=== PATIENT | female | born 1940 | race African-American/Black ===

== ENCOUNTER 2023-01-23 15:14 | Observation (INO) | payer BC ==
[2023-01-23 17:18] LABS: EOS % 3.9 % (0-4.5); HEMATOCRIT 34.4 % (32.4-45.2); HEMOGLOBIN 11.5 GM/dL (10.7-15.3); LYMPH % 44.3 % (8-40); MCH 27.2 pg (25.7-33.7); MCHC 33.3 g/dl (32.0-36.0); MEAN CELL VOLUME 81.5 fl (80-96); MEAN PLT VOLUME 7.7 fl (7.5-11.1); NEUT % 43.8 % (42.8-82.8); PLATELET COUNT 216 10^3/uL (134-434); RBC 4.22 M/mm3 (3.60-5.2); RDW 14.8 % (11.6-15.6); WHITE BLOOD COUNT 5.8 K/mm3 (4.0-10.0)
[2023-01-23 17:21] LABS: VENOUS BASE EXCESS 0.6 mmol/L (-2-2); VENOUS O2 SATURATION 60.9 % (70-80); VENOUS PCO2 47.5 mmHg (38-52); VENOUS PH 7.364 (7.310-7.410)
[2023-01-23 17:26] LABS: INR 1.09 (0.83-1.09); PROTHROMBIN TIME (PATIENT) 12.6 SEC (9.7-13.0)
[2023-01-23 17:29] LABS: ACTIVATED PTT 32.4 SECONDS (25.2-36.5)
[2023-01-23 17:41] LABS: CALCIUM 9.4 mg/dL (8.5-10.1)
[2023-01-23 17:42] LABS: ALBUMIN 3.8 g/dl (3.4-5.0); BLOOD UREA NITROGEN 32.6 mg/dL (7-18); MAGNESIUM 2.4 mg/dL (1.8-2.4)
[2023-01-23 17:45] LABS: CREATININE 1.6 mg/dL (0.55-1.3)
[2023-01-23 17:46] LABS: BILIRUBIN,TOTAL 0.5 mg/dL (0.2-1)
[2023-01-23 17:52] LABS: EPI CELLS 9 /uL (0-25.1); HYALINE CASTS 0 /uL (0-3.1); URINE APPEARANCE CLEAR; URINE BACTERIA 303 /uL (0-1359); URINE BILIRUBIN NEGATIVE (NEGATIVE); URINE COLOR YELLOW; URINE GLUCOSE (UA) NEGATIVE (NEGATIVE); URINE KETONE NEGATIVE (NEGATIVE); URINE LEUK ESTERASE TRACE (NEGATIVE); URINE NITRITE NEGATIVE (NEGATIVE); URINE PROTEIN NEGATIVE (NEGATIVE); URINE RBC 9 /uL (0-23.9); URINE UROBILINOGEN 0.2 mg/dL (0.2-1.0); URINE WBC 9 /uL (0-25.8)
[2023-01-23] MEDS ORDERED: MECLIZINE HCL 25 MG TABLET (FP) PO ONE (18:25)
[2023-01-23] MEDS ORDERED: SODIUM CHLORIDE 0.9% 500 ML INFUS.BAG IV ONE ×2 (18:40→19:25)
[2023-01-23] MEDS ORDERED: MECLIZINE HCL 25 MG TABLET (FP) ONE (20:18)
[2023-01-23] MEDS ORDERED: amLODIPine BESYLATE 10 MG TABLET (FP) PO SCH (21:15)
[2023-01-23] MEDS ORDERED: amLODIPine BESYLATE 10 MG TABLET (FP) ONE (21:22)
[2023-01-23] MEDS ORDERED: ROSUVASTATIN CA 20 MG TABLET ONE (21:22)
[2023-01-23] MEDS ORDERED: HEPARIN NA (PORCINE) 5,000 UNITS/ML 1ML VIAL ONE (21:23)
[2023-01-23] MEDS: ROSUVASTATIN CA 20 MG TABLET PO SCH (21:31)
[2023-01-23] MEDS ORDERED: HEPARIN NA (PORCINE) 5,000 UNITS/ML 1ML VIAL SQ SCH (22:00)
[2023-01-23] MEDS ORDERED: ASPIRIN 81 MG CHEWABLE TABLETS PO ONE (22:32)
[2023-01-23 23:01] VITALS: BMI 39.0
[2023-01-24] MEDS ORDERED: MECLIZINE HCL 12.5 MG TABLET PO PRN (01:00)
[2023-01-24] MEDS ORDERED: ASPIRIN 81 MG CHEWABLE TABLETS PO ONE (01:00)
[2023-01-24 07:10] LABS: HEMATOCRIT 32.3 % (32.4-45.2); HEMOGLOBIN 10.8 GM/dL (10.7-15.3); MCH 27.3 pg (25.7-33.7); MCHC 33.5 g/dl (32.0-36.0); MEAN CELL VOLUME 81.3 fl (80-96); MEAN PLT VOLUME 7.3 fl (7.5-11.1); PLATELET COUNT 214 10^3/uL (134-434); RBC 3.97 M/mm3 (3.60-5.2); RDW 14.7 % (11.6-15.6); WHITE BLOOD COUNT 5.6 K/mm3 (4.0-10.0)
[2023-01-24 07:35] LABS: CALCIUM 8.6 mg/dL (8.5-10.1)
[2023-01-24 07:36] LABS: BLOOD UREA NITROGEN 27.5 mg/dL (7-18); MAGNESIUM 2.2 mg/dL (1.8-2.4)
[2023-01-24 07:37] LABS: CHOLESTEROL 117 mg/dL (50-200)
[2023-01-24 07:38] LABS: TRIGLYCERIDES 106 mg/dL (0-150)
[2023-01-24 07:39] LABS: CREATININE 1.3 mg/dL (0.55-1.3); LDL CHOLESTEROL (ONLY SJRH) 58 mg/dL (5-100); PHOSPHOROUS 4.3 mg/dL (2.5-4.9)
[2023-01-24 07:41] LABS: HDL CHOLESTEROL 48 mg/dL (40-60)
[2023-01-24] MEDS: ENOXAPARIN NA (PORCINE) 40 MG/0.4 ML DISP.SYRIN SQ SCH (09:42)
[2023-01-24] MEDS ORDERED: ASPIRIN 81 MG CHEWABLE TABLETS PO SCH (10:00)
[2023-01-24] MEDS ORDERED: FUROSEMIDE 40 MG TABLET (FP) PO PRN (12:42)
[2023-01-24] MEDS: ROSUVASTATIN CA 20 MG TABLET PO SCH (21:26)
[2023-01-25 06:43] LABS: HEMATOCRIT 31.4 % (32.4-45.2); HEMOGLOBIN 10.8 GM/dL (10.7-15.3); MCH 28.5 pg (25.7-33.7); MCHC 34.4 g/dl (32.0-36.0); MEAN CELL VOLUME 82.8 fl (80-96); MEAN PLT VOLUME 7.6 fl (7.5-11.1); PLATELET COUNT 221 10^3/uL (134-434); RBC 3.79 M/mm3 (3.60-5.2); RDW 14.4 % (11.6-15.6); WHITE BLOOD COUNT 5.5 K/mm3 (4.0-10.0)
[2023-01-25 06:58] LABS: CALCIUM 8.6 mg/dL (8.5-10.1)
[2023-01-25 06:59] LABS: ALBUMIN 3.2 g/dl (3.4-5.0); BLOOD UREA NITROGEN 34.3 mg/dL (7-18)
[2023-01-25 07:02] LABS: CREATININE 1.4 mg/dL (0.55-1.3)
[2023-01-25 07:03] LABS: BILIRUBIN,TOTAL 0.3 mg/dL (0.2-1); TOT PROT 5.9 g/dl (6.4-8.2)
[2023-01-25 08:16] VITALS: RESP 19
[2023-01-25] MEDS ORDERED: ASPIRIN 81 MG CHEWABLE TABLETS PO SCH (10:00)
[2023-01-25] MEDS ORDERED: HYDROCHLOROTHIAZIDE 25 MG TABLET (FP) PO SCH (10:00)
[2023-01-25] MEDS ORDERED: VALSARTAN 160 MG TABLET PO SCH (10:00)
[2023-01-25] MEDS: FUROSEMIDE 40 MG TABLET (FP) PO SCH ×2 (10:16→10:29)
[2023-01-25] MEDS: ENOXAPARIN NA (PORCINE) 40 MG/0.4 ML DISP.SYRIN SQ SCH (10:16)
[2023-01-25 14:58] VITALS: BP 159/87; PULSE 77; TEMP 98.2
== END 2023-01-25 17:42 | disposition home or self-care (01) ==
LOC: JER 15:14 → JERBED 18:26 → J4W 22:01
PROVIDERS: ADMIT Internal Medicine; ATTEND Internal Medicine
PROC: 3E023GC Introduction of Other Therapeutic Substance into Muscle, Percutaneous Approach (ICD-10-PCS; principal; 2023-01-23)
PROC: 3E023GC Introduction of Other Therapeutic Substance into Muscle, Percutaneous Approach (ICD-10-PCS; 2023-01-23)
PROC: 3E0337Z Introduction of Electrolytic and Water Balance Substance into Peripheral Vein, Percutaneous Approach (ICD-10-PCS; 2023-01-23)
DX: R42 Dizziness and giddiness (principal); N17.9 Acute kidney failure, unspecified; E78.5 Hyperlipidemia, unspecified; I10 Essential (primary) hypertension; E66.8 Other obesity; Z68.39 Body mass index [BMI] 39.0-39.9, adult
CPT/HCPCS: 0241U-QW; 36415; 70450-TC; 70496-TC; 70498-TC; 70551-TC; 71045-TC-FY; 80048; 80053; 80061; 81003; 82436; 82570; 82803; 82962; 83605; 83690; 83735; 84100; 84133; 84156; 84300; 84484; 85025; 85027; 85610; 85730; 87086; 93005; 93010; 94010; 96372; 97116-GP; 97161-GP; 99285-25; G0378; J1644